=== PATIENT | female | born 1960 | race Asian ===

== ENCOUNTER → 2017-11-14 | Outpatient (CLI) | payer OTHER ==
[~2017-11-14] MED LIST: ACET325T14 PO; AMIO200T42 PO; ATOR20TA9 PO; DOCU-131 PO; METF500T4 PO; METO25TA91 PO; WARF2.5T PO-COUM
[2017-11-14 09:48] LABS: INTERNATIONAL NORMALIZED RATIO 2.65 (0.93-1.1)
== END | disposition home or self-care (01) ==
LOC: LAB 09:22
PROVIDERS: ATTEND Internal Medicine
DX: I48.91 Unspecified atrial fibrillation (principal)
CPT/HCPCS: 36415; 85610

== ENCOUNTER → 2017-11-21 | Outpatient (CLI) | payer OTHER ==
[2017-11-21 11:18] LABS: INTERNATIONAL NORMALIZED RATIO 3.89 (0.93-1.1); PROTHROMBIN TIME 39.4 Seconds (9.6-11.5)
== END | disposition home or self-care (01) ==
LOC: LAB 10:43
PROVIDERS: ATTEND Internal Medicine Cardiovascular Disease
DX: I48.0 Paroxysmal atrial fibrillation (principal)
CPT/HCPCS: 36415; 85610

== ENCOUNTER 2018-01-09 04:45 | Inpatient (IN) | payer MEDICAID, OTHER ==
[~2018-01-09] VITALS: Ht 152.4 cm; Wt 55.0 kg
[~2018-01-09 04:45] MED LIST changes: -METF500T4 PO; +METF500T5 PO
[2018-01-09 06:06] LABS: ALANINE AMINOTRANSFERASE 36 U/L (12-78); ALBUMIN 3.7 g/dL (3.4-5.0); ANION GAP 10 mmol/L (5-15); CALCIUM 8.4 mg/dL (8.5-10.1); CHLORIDE 109 mmol/L (98-107); CREATININE 1.13 mg/dL (0.55-1.02)
[2018-01-09 06:10] LABS: ALKALINE PHOSPHATASE 112 U/L (45-117); BILIRUBIN,TOTAL 0.8 mg/dL (0.2-1.0); TOTAL PROTEIN 7.8 g/dL (6.4-8.2); TROPONIN I < 0.015 ng/mL (0.000-0.045)
[2018-01-09 07:15] LABS: MEAN CORPUSCULAR HEMOGLOBIN 28.5 pg (27.0-34.8); MEAN CORPUSCULAR HGB CONC 32.8 g/dL (32.4-35.8); MEAN CORPUSCULAR VOLUME 87.1 fL (80-100); MEAN PLATELET VOLUME 9.2 fL (7.4-10.4); PLATELET COUNT 174 x10^3/uL (130-400); RED BLOOD COUNT 5.06 x10^6/uL (3.82-5.3); RED CELL DISTRIBUTION WIDTH 15.4 % (9.6-15.2)
[2018-01-09 07:27] LABS: BASOPHILS # (AUTO) 0.03 x10^3/uL (0-0.1); BASOPHILS % (AUTO) 0 % (0-1); EOSINOPHILS # (AUTO) 0.13 x10^3/uL (0-0.4); EOSINOPHILS % (AUTO) 1 % (1-7); LYMPHOCYTES # (AUTO) 2.77 x10^3/uL (1-3.4); LYMPHOCYTES % (AUTO) 31 % (22-44); MD SCAN; MONOCYTES # (AUTO) 0.56 x10^3/uL (0.2-0.8); MONOCYTES % (AUTO) 6 % (2-9); NEUTROPHILS # (AUTO) 5.57 x10^3/uL (1.8-6.8); NEUTROPHILS % (AUTO) 62 % (42-75)
[2018-01-09] MEDS ORDERED: METOPROLOL SUCCINATE 25 MG TAB.ER.24H PO SCH (08:00)
[2018-01-09] MEDS ORDERED: POLYETHYLENE GLYCOL 17 GM PACKET PO PRN (08:00)
[2018-01-09] MEDS ORDERED: hydrALAzine 20 MG/ML, 1ML IVPush PRN (08:00)
[2018-01-09] MEDS ORDERED: ACETAMINOPHEN 325 MG TABLET PO PRN (08:00)
[2018-01-09] MEDS ORDERED: ONDANSETRON 2MG/ML, 2ML IVPush PRN (08:00)
[2018-01-09] MEDS ORDERED: WARFARIN 2.5 MG TABLET PO-COUM SCH (08:00)
[2018-01-09] MEDS ORDERED: METOPROLOL TARTRATE 25 MG TABLET ONE (09:04)
[2018-01-09] MEDS ORDERED: AMIODARONE 200 MG TABLET ONE (09:04)
[2018-01-09] MEDS: AMIODARONE 200 MG TABLET PO SCH ×2 (09:10→20:12)
[2018-01-09] MEDS: metFORMIN 500 MG TABLET PO SCH ×2 (09:11→21:00)
[2018-01-09] MEDS: SODIUM CHLORIDE 0.9% 1,000 ML IV SCH (09:15)
[2018-01-09] MEDS: INSULIN LISPRO 100 UNITS/ML, PEN SQ-INSULIN SCH ×3 (11:00→20:01)
[2018-01-09 12:40] VITALS: BP 162/69
[2018-01-09 12:52] VITALS: BP 159/72
[2018-01-09 14:19] VITALS: BP 164/79
[2018-01-09 19:35] VITALS: BP 162/77
[2018-01-09] MEDS ORDERED: ATORVASTATIN 20 MG TABLET PO SCH (21:00)
[2018-01-09] MEDS ORDERED: WARFARIN 2.5 MG TABLET PO-COUM ONE (22:00)
[2018-01-09] MEDS ORDERED: METOPROLOL SUCCINATE 25 MG TAB.ER.24H HOMEMEDPO SCH (22:07)
[2018-01-10 02:00] VITALS: BP 146/72
[2018-01-10] MEDS: SODIUM CHLORIDE 0.9% 1,000 ML IV SCH (02:51)
[2018-01-10 06:21] VITALS: BP 144/73
[2018-01-10] MEDS ORDERED: AMLO10TA4 PO (06:46)
[2018-01-10] MEDS: INSULIN LISPRO 100 UNITS/ML, PEN SQ-INSULIN SCH ×2 (07:00→11:00)
[2018-01-10 07:51] VITALS: BP 163/79
[2018-01-10] MEDS ORDERED: AMLODIPINE 5 MG TABLET PO SCH (09:00)
[2018-01-10] MEDS ORDERED: metFORMIN 500 MG TABLET HOMEMEDPO SCH (09:00)
[2018-01-10] MEDS ORDERED: METFORMIN 500 MG PO SCH (09:00)
[2018-01-10] MEDS ORDERED: AMIODARONE 200 MG TABLET HOMEMEDPO SCH (09:00)
[2018-01-10] MEDS ORDERED: AMIODARONE 200 MG PO SCH (09:00)
[2018-01-10] MEDS ORDERED: PNEUMOCOCCAL 23 VACCINE IM-VACC ONE (11:30)
[2018-01-10] MEDS ORDERED: WARFARIN 2.5 MG TABLET PO-COUM SCH (17:00)
[2018-01-10] MEDS ORDERED: ATORVASTATIN 20 MG PO SCH (21:00)
[2018-01-10] MEDS ORDERED: ATORVASTATIN 20 MG TABLET HOMEMEDPO SCH (21:00)
== END 2018-01-10 12:10 | disposition home or self-care (01) | DRG 305 ==
LOC: ED 07:02 → EDIP 07:34 → SUATTDRO 07:47 → 5SO 09:26 → DCLOUNGE 01-10 11:54
PROVIDERS: ADMIT Hospitalist; ATTEND Hospitalist
DX: I16.0 Hypertensive urgency (principal); J98.11 Atelectasis; D68.69 Other thrombophilia; E11.9 Type 2 diabetes mellitus without complications; F41.9 Anxiety disorder, unspecified; I08.0 Rheumatic disorders of both mitral and aortic valves; I48.0 Paroxysmal atrial fibrillation; I69.320 Aphasia following cerebral infarction; Z79.899 Other long term (current) drug therapy; Z82.5 Family history of asthma and other chronic lower respiratory diseases; Z83.3 Family history of diabetes mellitus; Z79.01 Long term (current) use of anticoagulants
CPT/HCPCS: 36415; 71045; 80053; 82962; 83880; 84484; 85025; 93005; 99285; J7030